=== PATIENT | female | born 1985 | race Asian ===

== ENCOUNTER 2016-08-25 10:58 | Emergency (ER) | payer MEDICAID, OTHER ==
[~2016-08-25] VITALS: Ht 162.6 cm; Wt 69.0 kg
[~2016-08-25 10:58] MED LIST: PRENAT PO
[2016-08-25 11:00] VITALS: Ht 162.6 cm; Wt 69.0 kg
[2016-08-25 11:51] LABS: ADD SCAN DIFF NO
[2016-08-25 11:57] LABS: BASOPHIL # 0.1 10^3/ul (0.0-0.1); BASOPHILS % 0.5 % (0.0-2.0); EOSINOPHILS # 0.3 10^3/ul (0.0-0.5); EOSINOPHILS % 3.3 % (0.0-7.0); HEMATOCRIT 41.5 % (37.0-47.0); HEMOGLOBIN 13.9 g/dl (12.0-16.0); LYMPHOCYTES # 2.4 10^3/ul (0.8-2.9); LYMPHOCYTES % 23.2 % (15.0-51.0); MEAN CORPUSCULAR HGB CONC 33.5 g/dl (32.0-37.0); MEAN CORPUSCULAR VOLUME 89.6 fl (82.0-101.0); MEAN PLATELET VOLUME 10.1 fl (7.4-10.4); MONOCYTE # 0.6 10^3/ul (0.3-0.9); MONOCYTES % 6.2 % (0.0-11.0); NEUTROPHIL # 6.8 10^3/ul (1.6-7.5); NEUTROPHILS % 66.3 % (39.0-77.0); PLATELET COUNT 328 10^3/UL (140-415); RED BLOOD COUNT 4.63 10^6/ul (4.20-5.40); WHITE BLOOD COUNT 10.3 10^3/ul (4.8-10.8)
--- NOTE | 2016-08-25 11:57 | RADRPT ---
PROCEDURE: US OB. CLINICAL INDICATION: Vaginal bleeding TECHNIQUE: Transabdominal views of the pelvis are available for review. COMPARISON: No prior studies are available for comparison. FINDINGS: There is a single intrauterine gestation with the crown-rump length measuring 6.9 cm, corresponding to a gestational age of 13 weeks and 1 day. The heart rate is noted at 152 bpm. The ovaries are not visualized. There is no free fluid. RPTAT: AA IMPRESSION: Single live intrauterine with an estimated gestational age of 13 weeks and 1 day, based on ultrasound measurements. ROSETTA based on ultrasound measurements is 03/01/17. .Mihai Ontiveros MD, MD Date Time Electronically viewed and signed by .Mihai Ontiveros MD, MD on 08/25/2016 11:56 .S/
[2016-08-25 12:15] LABS: ADD UMIC YES; URINE BILIRUBIN (Dip) NEGATIVE (NEGATIVE); URINE BLOOD (Dip) TRACE (NEGATIVE); URINE COLOR LT. YELLOW (YELLOW); URINE GLUCOSE (Dip) NEGATIVE (NEGATIVE); URINE KETONES (Dip) NEGATIVE (NEGATIVE); URINE LEUKOCYTE ESTERASE (Dip) NEGATIVE (NEGATIVE); URINE NITRITE (Dip) NEGATIVE (NEGATIVE); URINE TOTAL PROTEIN (Dip) NEGATIVE (NEGATIVE); URINE UROBILINOGEN (Dip) 0.2 E.U./dL (0.1-1.0)
[2016-08-25 12:38] LABS: URINE RBCS NONE SEEN /HPF (0)
[2016-08-25] MEDS ORDERED: ACETAMINOPHEN 325 MG TAB PO ONE (13:00)
[2016-08-25 13:23] VITALS: TEMP 98.5
--- NOTE | 2016-09-21 17:27 | ERD ---
ER Documentation Chief Complaint Date/Time DATE: 09/21/16 TIME: 17:26 Chief Complaint SPOTTING LAST NIGHT , 10 WEEKS PREG , LOWER ABD PAIN RADIATING TO BACK HPI This 31-year-old female presents with vaginal spotting since last night. She is approximately 10 weeks by dates. She denies significant pain, fevers, vomiting ROS All systems reviewed and are negative except as per history of present illness. Medications Home Meds Reported Medications Multivit/Min/Fol Ac/Iron/Pren* ( S*) 1 Tab Tab, 1 TAB PO DAILY, TAB 11/26/15 Allergies Allergies: Coded Allergies: No Known Allergy (Unverified , 11/26/15) PMhx/Soc Medical and Surgical Hx: pt denies Medical Hx, pt denies Surgical Hx Hx Alcohol Use: No Hx Substance Use: No Hx Tobacco Use: No Physical Exam Physical Exam Const: [] Alert, [id number] per Head: Atraumatic Eyes: Normal Conjunctiva ENT: Normal External Ears, Nose and Mouth. Neck: Full range of motion..~ No meningismus. Resp: Clear to auscultation bilaterally Cardio: Regular rate and rhythm, no murmurs Abd: Soft, non tender, non distended. Normal bowel sounds Skin: No petechiae or rashes Back: No midline or flank tenderness Ext: No cyanosis, or edema Neur: Awake and alert Psych: Normal Mood and Affect Results 24 hrs Laboratory Tests Test 08/25/16 11:28 White Blood Count 10.310^3/ul Red Blood Count 4.6310^6/ul Hemoglobin 13.9g/dl Hematocrit 41.5% Mean Corpuscular Volume 89.6fl Mean Corpuscular Hemoglobin 30.0pg Mean Corpuscular Hemoglobin Concent 33.5g/dl Red Cell Distribution Width 12.0% Platelet Count 49216^3/UL Mean Platelet Volume 10.1fl Neutrophils % 66.3% Lymphocytes % 23.2% Monocytes % 6.2% Eosinophils % 3.3% Basophils % 0.5% Nucleated Red Blood Cells % 0.0/100WBC Neutrophils # 6.810^3/ul Lymphocytes # 2.410^3/ul Monocytes # 0.610^3/ul Eosinophils # 0.310^3/ul Basophils # 0.110^3/ul Nucleated Red Blood Cells # 0.010^3/ul Urine Color LT. YELLOW Urine Clarity CLEAR Urine pH 6.0 Urine Specific [place] 1.025 Urine Ketones NEGATIVE Urine Nitrite NEGATIVE Urine Bilirubin NEGATIVE Urine Urobilinogen 0.2 E.U./dL Urine Leukocyte Esterase NEGATIVE Urine Microscopic RBC NONE SEEN/HPF Urine Microscopic WBC NONE SEEN/HPF Urine Hemoglobin TRACE Urine Glucose NEGATIVE% Urine Total Protein NEGATIVE Beta HCG, Quantitative 33324.0mIU/ml Current Medications Medications (Trade) Dose Ordered Sig/Oneil Route PRN Reason Start Time Stop Time Status Last Admin Dose Admin Acetaminophen (Tylenol Tab) 650 mg ONCE ONCE PO 08/25/16 13:00 08/25/16 13:03 DC 08/25/16 13:04 Procedures/MDM Pelvic ultrasound shows a normal-appearing 13 week intrauterine . Patient is Rh+. Patient presents with vaginal spotting of uncertain etiology of early without evidence of ectopic , acute complications of . She will discharged home with further observation and instructions to follow-up with primary care doctor. Departure Diagnosis: Primary Impression: Vaginal bleeding in patient at less than 20 weeks ges... Condition: Stable Patient Instructions: Bleeding During Early Additional Instructions: Examination shows normal 13 week today. Follow-up with OB or return for worsening bleeding, fevers, new or worsening symptoms. Okay to take Tylenol for pain and drink plenty of fluids. CHEMO SAM MD Sep 21, 2016 17:27
== END 2016-08-25 13:24 | disposition home or self-care (01) ==
LOC: FTE 10:58
DX: O20.9 Hemorrhage in early pregnancy, unspecified (principal); Z3A.13 13 weeks gestation of pregnancy
CPT/HCPCS: 76801; 81001; 84702; 85025; 86900; 86901; Z7610; 36415; 81003